=== PATIENT | male | born 1940 | race Caucasian/White ===

== ENCOUNTER 2017-01-26 12:00 | Inpatient (IN) | payer MEDICARE, OTHER ==
[~2017-01-26] VITALS: Ht 175.3 cm; Wt 64.9 kg
--- NOTE | ~2017-01-26 | CON ---
PATIENT'S NAME: ARSH WIN [facility] AGE: 76 Y [address] ROOM: [place] [address] [place] [facility] [place] DATE: 01/26/2017 Consultation DISCHARGE DATE: FAMILY PHYSICIAN: JUAN MORALES ATTENDING PHYSICIAN: MARGO DYE DATE OF CONSULTATION: 01/26/2017 REFERRING PHYSICIAN: Kavon Teran MD CHIEF COMPLAINT: Left hydronephrosis. HISTORY OF PRESENT ILLNESS: The patient is a pleasant 76-year-old male, who was transferred in today from [facility] for further evaluation and possible treatment. He had presented with new onset of abdominal pain along with some nausea. He underwent a CT scan of his abdomen and pelvis with findings including significant and severe left hydronephrosis with delayed contrast excretion on the left collecting system. He also had some mild dilatation of the left ureter with possibly a focal soft tissue density within the distal left ureter concerning for possible left ureteral mass. He was also noted to have a large cecal mass consistent with probable colon cancer. He also had multiple ill- defined liver lesions consistent with possible metastatic disease. He also had some right lower quadrant mesenteric lymphadenopathy. He did have only some mild right hydronephrosis. On CT scan, he was also noted to have a significantly enlarged prostate as well as some bladder wall thickening. The patient has reported some weakening of his urinary stream over the years as well as some urinary hesitancy. In addition, he has had some ongoing urinary urgency and frequency with nocturia 2 times per night. He denies any dysuria. He denies any prior procedures for his prostate. He has not been on any medications for his prostate. The patient has no further questions or concerns at this time. PAST MEDICAL HISTORY: 1. Hyperlipidemia. 2. Allergic rhinitis. 3. Colon mass. 4. Left hydronephrosis. PAST SURGICAL HISTORY: 1. Hernia repair. 2. Back surgery in 1970. 3. Sigmoidoscopy in November of 2016. SOCIAL HISTORY: PATIENT'S NAME: ARSH WIN [facility] AGE: 76 Y [address] ROOM: [place] [address] [place] [facility] [place] DATE: 01/26/2017 Consultation DISCHARGE DATE: FAMILY PHYSICIAN: KRILEY, JUAN C. ATTENDING PHYSICIAN: MARGO DYE The patient is . He is a former smoker with 16 years of smoking history. He denies any alcohol use or illicit drug use. He is a retired meza. FAMILY HISTORY: No reported family history of any genitourinary abnormalities. ALLERGIES: NO KNOWN DRUG ALLERGIES. MEDICATIONS: See hospitalization medication reconciliation. REVIEW OF SYSTEMS: A full 10+ point review of systems was performed with pertinent positive and negative findings included in the history of present illness. Of note, he did have some nausea but no vomiting. He denied any fevers, chills, or night sweats. He denies any chest pain or palpitations. He denied any dizziness or syncope. He denies any history of bleeding disorders. He denied any history of depression or anxiety. All other systems reviewed and are otherwise negative. PHYSICAL EXAMINATION: VITAL SIGNS: Stable. CONSTITUTIONAL: No acute distress. Hemodynamically stable. HEENT: Extraocular muscles intact. Mucous membranes moist. No drainage per ears and nose. CARDIAC: Good peripheral perfusion. No tachycardia. RESPIRATORY: No audible wheezing or stridor. ABDOMEN: Soft, nontender, nondistended. MUSCULOSKELETAL: Moves all extremities. NEUROLOGIC: No focal deficits noted. HEMATOLOGIC: No bruising or active sites of bleeding. PSYCHIATRIC: Normal affect and answers questions appropriately. IMPRESSION: 1. Left hydronephrosis with possible soft tissue density of distal ureter. 2. Benign prostatic hyperplasia. 3. Right-sided large cecal mass. 4. Right lower quadrant mesenteric lymphadenopathy. PLAN: I had a long discussion today with the patient regarding my findings. Given his findings on CT scan concerning for obstruction of his left renal collecting system, I did recommend further evaluation with cystoscopy and left PATIENT'S NAME: ARSH WIN [facility] AGE: 76 Y [address] ROOM: [place] [address] [place] [facility] DATE: 01/26/2017 Consultation DISCHARGE DATE: FAMILY PHYSICIAN: JUAN MORALES ATTENDING PHYSICIAN: MARGO DYE retrograde ureteropyelogram. I explained that we may also consider further evaluation with a diagnostic left ureteroscopy with possible biopsy if any mass is visualized. In addition, we discussed placement of concurrent indwelling left ureteral stent. We discussed the risks, benefits, indications, and alternatives. We also discussed placement of a temporary right ureteral catheter, which could aid General Surgery in identifying the right ureter if need be during their portion of the surgery which is going to include a likely colon resection. We will work together with General Surgery on this case, and we will start with cystoscopy first. We also discussed the possibility of having a difficult time finding his ureteral orifices given his severely enlarged prostate, in which case if we are unsuccessful in placing a stent on the left side, he may need further treatment with placement of a left- sided nephrostomy tube. His questions and concerns were addressed, and he has no further at this time. MD TIFFANY KAUR/sandy /[id number] d: 01/27/17 0032 t: 02/04/17 1029, CONSULTATION REPORT
--- NOTE | ~2017-01-26 | DS ---
PATIENT'S NAME: ARSH WIN [facility] AGE: 76 Y [address] ROOM: [address] [address] [place] [facility] [place] DATE: 01/26/2017 Discharge Summary DISCHARGE DATE: 02/01/2017 FAMILY PHYSICIAN: ATTENDING PHYSICIAN: Ivy Barrera DISCHARGE DIAGNOSES: 1. Cecal mass. 2. Severe hydronephrosis. 3. Acute kidney injury on chronic kidney disease, stage III. 4. Acute blood loss anemia. 5. Stage IV adenocarcinoma of the colon. PROCEDURES PERFORMED: 1. Cystoscopy with placement of indwelling bilateral ureter stents on 01/26/[address] Walter Mccarthy. 2. On 01/26/2017, laparoscopic right colectomy by Dr. Teran. 3. On 01/27/2017, Dr. Teran; diagnostic laparoscopy, evacuation of hematoma and placement of a clip on the ileocolic vessel. HOSPITAL COURSE: Please refer to admitting history and physical as dictated by Dr. Barrera. Briefly, the patient was admitted to [facility] with acute abdominal pain and evidence of a partial small bowel obstruction and mass. Dr. Teran was consulted for the cecal mass and recommended that he proceed with surgery. Dr. Teran performed a laparoscopic right colectomy on , at the same time, Dr. Mccarthy also saw the patient for severe left hydronephrosis and mild right hydronephrosis and performed a cystoscopy and placement of bilateral indwelling ureteral stents. Postoperatively, the patient was noted to have hypotension and anemia. His hemoglobin in recovery was found to be 6.9. Dr. Teran took him back to surgery where he performed diagnostic laparoscopy and evacuation of a hematoma with placement of a clip on the ileocolic vessel. He had approximately 1 L of blood loss in the abdomen. Postoperatively, the patient did require multiple units of packed red blood cells. His hemoglobin dropped as low as 6.5 on 01/30/2017. After further transfusions, hemoglobin remained steady at 9.2 to 9.4. He was asymptomatic. He was made n.p.o. postop. Ambulation was encouraged. His pain was monitored with the FEEDER SWITCHBOARD OPERATOR. Lovenox was held postoperatively because of his anemia. Mefoxin was continued postop. The patient's electrolytes were monitored. His creatinine did improve throughout his stay from 2.0 down to 1.1 on the day of discharge. He was able to be ambulatory in the halls. Physical therapy and occupational therapy were both consulted throughout his hospital stay. On 01/28/2017, his Burroughs and NG tube were discontinued. Dr. Cabello was consulted for the cecal tumor. Pathology was pending until the final day of hospitalization, at which time, pathology did reveal a stage IV adenocarcinoma of the colon. The patient was noted to have some urinary PATIENT'S NAME: ARSH WIN [facility] AGE: 76 Y [address] ROOM: [place] [address] [place] [facility] [place] DATE: 01/26/2017 Discharge Summary DISCHARGE DATE: 02/01/2017 FAMILY PHYSICIAN: ATTENDING PHYSICIAN: Ivy Barrera after his catheter was discontinued. He was started on Flomax. On the day of discharge, he was voiding without difficulties. The patient's bowel did begin to wake up. His bowel sounds were active. He did have a bowel movement on the day of discharge. His diet was increased to a surgical soft diet. The patient did have pending laboratory data that was ordered by Oncology that will need further followup. The patient had minimal abdominal pain. Not using anything for pain. He was up ambulatory in the hallway. On 02/01/2017, the patient's vital signs were stable. It was felt as though he could be discharged to home with further followup as an outpatient with Dr. Teran, [facility], Dr. Mccarthy and Dr. Edgardo Becerril. It was recommended that he follow up with Dr. Becerril in 3 days with the CBC and renal at that time. LABORATORY DATA: Sodium remained stable throughout his stay 144. Potassium 5.1 on admit and 3.7 on the day of discharge. Calcium 8.4. BUN 26 on admit and it did go as high as 33, prior to discharge 21. Creatinine 2.0 on admit, trended down to 1.1 on the day of discharge. Phos 2.9. ALT 14, AST 16, alkaline phosphatase 42. GFR 33 upon admit and greater than 60 prior to discharge. Mag 2.2. WBC 16.0 on admit, 3.3 prior to discharge. Hemoglobin 6.9, it trended upwards to 9.7 at which time then trended back downward as far as 6.5, prior to discharge it had been stable at 9.4. Hematocrit 19.9 to 29.2. Platelets 188. INR 1.22. CEA 18.7. Pathology reports adenocarcinoma grade 2, metastatic adenocarcinoma and 13 of 18 lymph nodes. DISCHARGE INSTRUCTIONS: Diet: As tolerated. Activity: No heavy lifting. Followup appointment with: 1. Dr. Teran in 1-2 weeks. 2. [facility] in 1-[address] Mccarthy in 3-[address] Edgardo Becerril in 3 days with the CBC and renal panel. Allow Steri-Strips on abdomen to fall off. DISCHARGE MEDICATIONS: 1. Protonix 40 mg p.o. daily. 2. Flomax 0.4 mg p.o. daily. 3. Fish oil 1 capsule p.o. daily. 4. Multivitamin 1 tablet p.o. daily. 5. Iron 65 mg p.o. daily. 6. Tylenol 650 mg p.o. every 6 hours p.r.n. pain. Thank you for allowing us to participate in the care of this patient as he has PATIENT'S NAME: ARSH WIN [facility] AGE: 76 Y [address] ROOM: [place] [address] [place] [facility] [place] DATE: 01/26/2017 Discharge Summary DISCHARGE DATE: 02/01/2017 FAMILY PHYSICIAN: ATTENDING PHYSICIAN: Ivy Barrera been hospitalized at [facility]. CELY HESS APRN FOR MD DAMASO PALOMO/sandy /[id number] CC: MD Kavon Donahue MD George K Bascom, MD THOMAS C KRILEY, MD d: 02/02/17 0450 t: 02/14/17 1603, DISCHARGE SUMMARY
--- NOTE | ~2017-01-26 | OR ---
PATIENT'S NAME: ARSH WIN [facility] AGE: 76 Y [address] ROOM: [place] [address] [place] [facility] [place] DATE: 01/26/2017 OR/Procedure Report DISCHARGE DATE: FAMILY PHYSICIAN: JUAN MORALES ATTENDING PHYSICIAN: MARGO DYE SURGEON: Mohit Mccarthy MD CRM MARKETING ANALYST: None. DATE OF PROCEDURE: 01/26/2017 PREOPERATIVE DIAGNOSES: 1. Severe left hydronephrosis. 2. Mild right hydronephrosis. 3. Small bowel obstruction. 4. Cecal mass with possible metastasis. 5. Benign prostatic hyperplasia. POSTOPERATIVE DIAGNOSES: 1. Severe left hydronephrosis. 2. Mild right hydronephrosis. 3. Small bowel obstruction. 4. Cecal mass with possible metastasis. 5. Benign prostatic hyperplasia. OPERATIVE PROCEDURES: 1. Cystoscopy with placement of indwelling bilateral ureteral stents. 2. Cystoscopy with left retrograde ureteral pyelogram. 3. Diagnostic left ureteroscopy. ANESTHESIA ADMINISTERED: General. INDICATIONS FOR PROCEDURE: The patient is a pleasant 76-year-old male, who had presented with nausea today and underwent a CT scan and was found to have findings consistent with a probable small bowel obstruction as well as cecal mass with likely metastasis possibly to the liver and right lower quadrant mesenteric lymphadenopathy. He was noted to have severe left hydronephrosis with hydroureter down to his distal left ureter as well as some mild right hydronephrosis. The patient was explained the risks, benefits, indications, and alternatives to above procedure and wished to proceed and consented freely. DESCRIPTION OF OPERATION: The patient was brought back to the operating room, where he was placed on the OR table in the supine position. A surgical time- out was called where patient identification, surgical site, and procedure was then verified. We also did verify that the patient received an IV antibiotic prior to beginning the procedure. The patient underwent successful PATIENT'S NAME: ARSH WIN [facility] AGE: 76 Y [address] ROOM: [place] [address] [place] [facility] [place] DATE: 01/26/2017 OR/Procedure Report DISCHARGE DATE: FAMILY PHYSICIAN: JUAN MORALES ATTENDING PHYSICIAN: MARGO DYE administration of general anesthesia. The patient was then moved and placed in a low lithotomy position. His genital area was then prepped and draped in the usual sterile fashion. I began by advancing a rigid cystoscope easily into the patient's urinary bladder. His anterior urethra was within normal limits. His posterior urethra was notable for severe trilobar hyperplasia of the prostate with a large intravesical median prostatic lobe. His bladder was negative for any bladder tumors, cellules, or diverticula. He did have evidence of long-term bladder outlet obstruction including 2 to 3+ bladder trabeculation. His ureteral orifices were noted to be in their orthotopic location but somewhat difficult to visualize given large median prostatic lobe. I then was able to cannulate his left ureteral orifice with a guidewire, then over the guide wire advanced a 5-Nigerien open-ended ureteral catheter and performed a left retrograde ureteral pyelogram. My interpretation is that he had significant hydronephrosis and hydroureter down to his distal ureter. There was a transition point at his distal left ureter approximately 3 cm proximal from his ureterovesical junction. There did not appear to be any internal filling defects. I then emptied his bladder and then re-entered with a semi-rigid ureteroscope and used a second guidewire to cannulate into his distal left ureter. I did come the across area of obstruction and was unable to past this area of obstruction. I did not see any papillary tumors and the obstruction was somewhat difficult to determine if this was a morbid extrinsic compression versus internal obstruction. I suspect that this is more of an external compression. Regardless, I withdrew the ureteroscope and then over the wire, advanced a 6-Nigerien x 26 cm ureteral stent deploying it noting a good curl fluoroscopically in the patient's left renal pelvis as well as a good curl visually in the patient's bladder. I then turned my attention to the right side. Given the fact that the general surgeons were going to need an indwelling catheter for their surgery, I opted to just go ahead and place a stent rather than leaving a ureteral catheter also given the fact that he had some mild hydronephrosis. I advanced a Sensor guidewire cannulating his right ureteral orifice and advanced the wire easily up to the patient's right renal collecting system. Then, over the wire, I advanced a 6-Nigerien x 26 cm ureteral stent deploying it noting a good curl fluoroscopically in the patient's right renal pelvis as well as a good curl visually in the patient's bladder. I did emptied the patient's bladder and then placed a 20-Nigerien coude Burroughs catheter easily into the patient's bladder. I placed 10 cubic centimeters of sterile water in the balloon and this was placed to gravity drainage. The patient was then taken out of the lithotomy position where he was then transferred over to the recovery bed and over to another operating room for Dr. Teran's portion of the procedure. Please see Dr. Teran's dictation for his procedure. The patient did tolerate my portion of the procedure well. COMPLICATIONS: None. PATIENT'S NAME: ARSH WIN [facility] AGE: 76 Y [address] ROOM: [address] [address] [place] [facility] [place] DATE: 01/26/2017 OR/Procedure Report DISCHARGE DATE: FAMILY PHYSICIAN: JUAN MORALES ATTENDING PHYSICIAN: MARGO DYE DRAINS: Indwelling bilateral 6-Nigerien x 26 cm indwelling ureteral stents. SPECIMENS: None. FOLLOWUP PLAN: His followup plan will be largely determined by his ultimate course with General Surgery but we will likely have him follow up as an outpatient in Urology Clinic to come up with a plan long-term regarding any further evaluation or treatment for his ureteral obstruction. MOHIT MCCARTHY MD GP/sandy /[id number] d: 01/27/17 0224 t: 02/04/17 1032, OPERATIVE SUMMARY
--- NOTE | ~2017-01-26 | CON ---
PATIENT'S NAME: ARSH WIN [facility] AGE: 76 Y [address] ROOM: [address] [address] [place] [facility] [place]: 01/26/2017 Consultation DISCHARGE DATE: FAMILY PHYSICIAN: JUAN MORALES ATTENDING PHYSICIAN: MARGO DYE DATE OF CONSULTATION: 01/26/2017 REFERRING PHYSICIAN: Kavon Teran MD CHIEF COMPLAINT: Abdominal pain and nausea. HISTORY OF PRESENT ILLNESS: The patient is a 76-year-old male, who awakened at 3 a.m. with abdominal pain. He described this very crampy, continued to be nauseated, was nauseated throughout the day, and ended up being seen in [place], where he was found to have significant abdominal tenderness. He had x-rays that were concerning for obstruction. He did have a CT scan of his abdomen, which revealed several significant findings including a large cecal mass, likely liver metastases, left hydronephrosis, and question of a left ureteral mass. With his abdominal pain, nausea, and signs of obstruction, he was sent here for further evaluation. Prior to this, the patient states that he has been eating well and had bowel movements yesterday; however, he has passed no gas today and had no bowel movements. He had an episode of abdominal pain approximately 1 month ago. This resolved very quickly. It was felt to be due to a small periumbilical hernia. The patient has been losing some weight. He has lost 10 pounds in the last 6 weeks. He says he feels like he has been eating. He says he has a history of having lower hemoglobin levels, has tried to give blood in the past and was unable to do this. He said he had a colonoscopy approximately 10 years ago, which he thought was normal. He had another one 1 month ago. They were unable to complete the colonoscopy at that time, but no other significant findings were present. He does have a significant family history of colon cancer. He had a mother, who had colon cancer. This was identified at the time of gallbladder removal when she was in her 60s. She did live to . He had a brother, who of colon cancer at age 57. He was a smoker in the past, smoked for approximately 15 years. CURRENT MEDICATIONS: No prescribed medications. ALLERGIES: NONE. PAST SURGICAL HISTORY: Inguinal hernia as well as a back surgery. PATIENT'S NAME: ARSH WIN [facility] AGE: 76 Y [address] ROOM: [address] [address] [place] [facility] [place]: 01/26/2017 Consultation DISCHARGE DATE: FAMILY PHYSICIAN: JUAN MORALES. ATTENDING PHYSICIAN: MARGO DYE SOCIAL HISTORY: He was a smoker in the past, roughly [id number] history. He does not drink a significant amount of alcohol. REVIEW OF SYSTEMS: He denies headache or vision changes. No diabetes. No coronary artery disease. No chest pain. No shortness of breath. No melena. No hematochezia. No hematuria or dysuria. He does have some urinary hesitancy. PHYSICAL EXAMINATION: GENERAL: A pleasant, cooperative, 76-year-old male. HEENT: Head is normocephalic, atraumatic. Eyes are anicteric. NECK: Without lymphadenopathy. HEART: Regular rate and rhythm. LUNGS: Clear to auscultation bilaterally. ABDOMEN: Soft. There is a mass palpable in the right lower quadrant. There is no rebound or guarding. There is distention. Hypoactive bowel sounds. He does have a small umbilical hernia. EXTREMITIES: Warm. No edema. NEUROLOGIC: Gross motor is intact. ASSESSMENT: 1. 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 2. Hydroureter. PLAN: At this point in time, discussed the findings with Arsh. This area being obstructing or at least near obstructing, we discussed observation and attempt chemotherapy versus surgery to relieve this obstruction. More immediately, I am concerned that his obstruction is going to continue to progress without surgical intervention. Because of this, we discussed risks of surgery, which include bleeding, infection, anastomotic leak, and wound complications. We discussed injury to other viscera as well as the ureter as well as even the potential need for an ostomy. He understands the risks of surgery and would like to proceed. Dr. Mccarthy has been consulted regarding his hydroureter. MD HAI LYON/sandy PATIENT'S NAME: ARSH WIN [facility] AGE: 76 Y [address] ROOM: [place] [address] [place] [facility] [place]: 01/26/2017 Consultation DISCHARGE DATE: FAMILY PHYSICIAN: JUAN MORALES ATTENDING PHYSICIAN: MARGO DYE /[id number] d: 01/27/176 t: 01/27/1718, CONSULTATION REPORT
--- NOTE | ~2017-01-26 | HP ---
PATIENT'S NAME: ARSH PIERSON [facility] AGE: 76 Y [address] ROOM: [address] [address] LOCATION: [facility] ADMIT DATE: 01/26/2017 History & Physical DISCHARGE DATE: FAMILY PHYSICIAN: JUAN MORALES ATTENDING PHYSICIAN: MARGO DYE DATE OF SERVICE: 01/26/2017 CHIEF COMPLAINT: Abrupt onset of abdominal pain less than 24 hours duration. HISTORY OF PRESENT ILLNESS: Mr. Pierson is a boyd 76-year-old male with a minimal past medical history. He reports being in his usual state of good health and in fact he donates blood every three months up until about 6 months ago. Routine screening at the [facility] showed positive occult blood and a colonoscopy was recommended. He had the colonoscopy done 30 days ago. The scope could not be advanced beyond the 9 degree angle in the colon, otherwise his colon looked good to that spot according to the club director. He denies any constitutional symptoms including constipation, significant fatigue, night sweats, excepting a 10 pound weight loss over 6 to 8 weeks, without any notable change in his appetite. He also denies fatigue, urinary symptoms, melena, or hematochezia. He suddenly developed abdominal pain at about 3:00 am today associated with dry heaves. He had some minor rigors. He had a bowel movement, which is small, loose around 4, but little bit looser at 7:00 am. He has had no further bowel movement since then. He has had no actual vomiting with dry heaves and he has had nothing to eat since 6:00 pm yesterday. He was seen and evaluated at [facility] in [place], where CT scan was obtained showing a large cecal mass, multiple liver lesions, and a cyst in the pancreatic head. He appeared to have early small-bowel obstruction. In addition, he was noted to have severe left hydronephrosis and enlarged prostate. In the emergency room, the patient's vital signs were stable with blood pressure 165/89, pulse 77, respirations 20, room air oxygen saturation 96%, and temperature 97.6. Thus he was allowed to drive here in his personal vehicle with his from [facility] this afternoon. He has been seen by Dr. Colleen Jiménez and Dr. Mccarthy, they both explained the rationale for surgical procedures and plans to take him to the operating room this evening. The patient and his appeared to understand these plans and were given time to answer the questions and encouraged to call me back in case they come up with further questions or concerns this evening. PAST MEDICAL HISTORY: PATIENT'S NAME: ARSH PIERSON [facility] AGE: 76 Y [address] ROOM: [place] [address] LOCATION: [facility] ADMIT DATE: 01/26/2017 History & Physical DISCHARGE DATE: FAMILY PHYSICIAN: JUAN MORALES ATTENDING PHYSICIAN: MARGO DYE. The patient said he has been taking iron supplement daily because his iron was borderline due to his donation of blood. Other than that, he denies hypertension, diabetes, or other chronic illnesses. PAST SURGICAL HISTORY: He had spinal fusion in 1970 at L4 and L5. He had an inguinal hernia repair on the right approximately 20 years ago. ALLERGIES: NO KNOWN DRUG ALLERGIES. MEDICATIONS: 1. 160 mg of iron p.o. daily. 2. Red yeast rice 600 mg two capsules daily. 3. Fish oil one capsule daily. 4. Flaxseed powder. 5. Multiple vitamin one daily. 6. Cayenne two capsules once a day. IMMUNIZATIONS: He has been immunized against pneumococcal, pneumonia, and influenza. He has not had shingles vaccine. SOCIAL HISTORY: He has been for more than 51 years. He has eight children one of whom lives in [facility]. He lives with his in [place], [place]. 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 He is a former smoker. He smoked for about 15-18 years one pack per day and he quit 40 years ago. He continues to drink about 1-2 glasses of beer or wine daily. He denies other substance use. FAMILY HISTORY: His mother at age 99. His father at age 96. He is one of 12 siblings. He had two siblings in childhood of cystic fibrosis and one brother who of colon cancer at age 58. The patient says he has had regular colon screening since his brother was diagnosed with colon cancer. REVIEW OF SYSTEMS: GENERAL: He has had the 10 pound weight loss over the past 6-8 weeks with normal appetite. No significant fatigue. No fevers. HEENT: Negative for headache, blurred vision, or dizziness. He does have small cataracts. He wears glasses. His vision is stable. He denies sinus problems. 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 PULMONARY: Negative for dyspnea, wheeze, cough, sputum production, and orthopnea. PATIENT'S NAME: ARSH PIERSON [facility] AGE: 76 Y [address] ROOM: [address] [address] LOCATION: [facility] ADMIT DATE: 01/26/2017 History & Physical DISCHARGE DATE: FAMILY PHYSICIAN: JUAN MORALES. ATTENDING PHYSICIAN: MARGO DYE CARDIOVASCULAR: Negative for any cardiovascular disease, palpitations, murmurs, or edema. GI: Positive for nausea and dry heaves with onset suddenly today. He had no vomiting or diarrhea. He may have had slight constipation related to his iron intake. He has had some bloating with a constant ache since 2 to 3 this morning. He denies hematemesis, hematochezia, or melena. KIDNEY AND BLADDER: He does have difficulty starting his slowest stream, which is poor but he denies UTI, burning on urination, hematuria, or polyuria. He is not taking any Flomax or medications for urinary symptoms. NEUROLOGIC: Negative including for weakness, numbness, confusion, dysarthria, syncope or near syncope, falls, loss of balance, or memory loss. HEMATOLOGIC: He has a borderline hemoglobin, but no significant history of anemia, bruising, or clotting disorders. 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 SKIN: He has had no skin cancers, allergies, pruritus, or significant rashes. PSYCHIATRIC: He denies any history of depression, anxiety, schizophrenia, manic disorder, or insomnia. Remainder of a 12-point review of systems is negative and has been reviewed by. The patient and his do not offer any other complaints. PHYSICAL EXAMINATION: VITAL SIGNS: Temperature 98, respirations 16, pulse 84, blood pressure 162/90, and his weight is 63.2 kilos. GENERAL: This is a well-developed, well-nourished, but small male, in no acute distress. He is awake, alert, oriented, and speaking in full sentences, and unable to give his history in detail. HEENT: Normocephalic, atraumatic. He is wearing glasses. Pupils are equal, round, and reactive to light. Sclerae anicteric. Palpebral conjunctivae are pink without exudate. The dentition is in very good repair. He has L1 partial plate. The soft palate lifts symmetrically. He does wear hearing aid in the left ear. NECK: Supple without lymphadenopathy or thyromegaly. PULMONARY: Clear to auscultation and percussion bilaterally. He has no CVA or vertebral tenderness. He has a well-healed scar in the lumbar spine. CARDIOVASCULAR: Regular rate and rhythm. No murmur, rub, or gallop. ABDOMEN: Slightly full, but soft with hyperactive bowel sounds. Fullness in the right lower quadrant. Dullness in the left lower quadrant. I do not feel a really specific mass though. There is no hepatosplenomegaly. EXTREMITIES: No cyanosis, clubbing, or edema. Strength is 5/5 and equal bilaterally in upper and lower extremities. He is able to grasp and move in the dorsiflexion and plantar flexion. His radial and pedal pulses are 2+ and equal bilaterally. SKIN: Thin and no significant lesion. He has a very small mole under the right eye. PATIENT'S NAME: ARSH PIERSON [facility] AGE: 76 Y [address] ROOM: [place] [address] LOCATION: [facility] ADMIT DATE: 01/26/2017 History & Physical DISCHARGE DATE: FAMILY PHYSICIAN: JUAN MORALES ATTENDING PHYSICIAN: MARGO DYE DIAGNOSTIC DATA: LABORATORY DATA: White blood cell count 6.6, hemoglobin 13.1, hematocrit 38.1, and platelets 246,000. Neutrophils 86%, lymphocytes 9.2% monocytes 4%. Sodium 139, potassium 4.4, chloride 99, CO2 20, glucose 111, BUN 33, and creatinine 1.62. Calcium 8.9, albumin 3.8, total protein 7.4, AST 17, ALT 13, alkaline phosphatase 76, and bilirubin 0.4. EGFR is 42. RADIOGRAPHIC: CT of the abdomen and pelvis at least 6 ill-defined low attenuation of a lesions. Severe left hydronephrosis with delayed contrast excretion. The left renal pelvis is dilated up to 2.7 cm. Mild dilation of left ureter. 1. Diffuse atherosclerosis. 2. Multiple dilated loops of small bowel air filled fluid levels. 3. Large mass within the cecum measuring 5 x 5 x 6 cm. 4. Right lower quadrant mesenteric lymphadenopathy concerning for matt metastasis. 5. Small abdominal and pelvic ascites. 6. Mild mesenteric edema. 7. No free air or pneumatosis. ASSESSMENT AND PLAN: 1. Acute abdominal pain with new findings and mild symptoms associated with radiographic evidence of partial small bowel obstruction and masses likely colon cancer. The patient will go to surgery at 7:00 pm, both Dr. Mccarthy and Dr. Colleen Jiménez will do procedures related to their specialty to address hydronephrosis and cecal mass. The patient is stable at this time. 2. Elevated creatinine. It looks like he may have some acute kidney injury on possible chronic kidney disease, which has been heretofore undiagnosed. We will monitor his renal function and any appropriate follow up. 3. Mild iron deficiency: The patient does have a normal hemoglobin at this time. He has a normal MCV, this is not concerning. 4. Disposition: The patient will be treated postoperatively and hopefully discharge to home within next week. Dr. Colleen Jiménez has given him a trajectory which he could expect given that this surgery is for indication involving a tumor. Thanks very much for your assistance. MARGO DYE MD LM/sandy PATIENT'S NAME: ARSH PIERSON [facility] AGE: 76 Y [address] ROOM: [address] [address] LOCATION: [facility] ADMIT DATE: 01/26/2017 History & Physical DISCHARGE DATE: FAMILY PHYSICIAN: JUAN MORALES ATTENDING PHYSICIAN: MARGO DYE /[id number] D: T: [id number] HISTORY & PHYSICAL
--- NOTE | ~2017-01-26 | OR ---
PATIENT'S NAME: ARSH [facility] AGE: 76 Y [address] ROOM: [address] [address] [place] [facility] [place] ADMIT DATE: 01/26/2017 OR/Procedure Report DISCHARGE DATE: FAMILY PHYSICIAN: JUAN MORALES ATTENDING PHYSICIAN: MARGO DYE SURGEON: Kavon Soria MD GAG WRITER: Gaye Caro PA-C. DATE OF PROCEDURE: 01/26/2017 PREOPERATIVE DIAGNOSIS: Obstructing cecal mass. POSTOPERATIVE DIAGNOSIS: Obstructing cecal mass. PROCEDURE: Laparoscopic right colectomy. FINDINGS: The patient had a very large cecal tumor. The small bowel was dilated consistent with obstruction. The liver lesions seen by CT were not visible on the external surface of the liver. There was a peritoneal nodule near the umbilicus that was excised and sent for pathologic evaluation. Tumor was visible on the external surface of the bowel wall. There were also peritoneal implants in the pelvis and on the small bowel. ESTIMATED BLOOD LOSS: 50 mL. COMPLICATIONS: None. INDICATIONS: The patient presented with abdominal pain. He had CT scan that revealed evidence of bowel obstruction with a cecal mass. We discussed right colectomy to relieve the obstruction with the patient; the risks, benefits, and alternatives of this; and he elected to proceed. DESCRIPTION OF PROCEDURE: The patient was taken to the operating room. He was supine. He was given IV sedation and subsequently intubated. Abdomen was prepped with ChloraPrep and sterilely draped. Local anesthetic was then infiltrated superior to the umbilicus. A vertical incision was created. The abdomen was elevated. A Veress needle was inserted. Pneumoperitoneum was induced. Following this, an 11 mm trocar was inserted followed by insertion of the camera. There was no injury from initial trocar placement. The cecal mass was immediately evident. It appeared as though this extended into the lateral sidewall initially. There appeared to be tumor visible on the bowel wall as well. The liver was inspected. There were no metastatic deposits externally on the liver. We placed 2 more trocars, these were both 5 mm trocars inserted in the left abdomen under direct visualization. Graspers were then inserted. We elevated the mesentery. This was quite distorted due to the cecal mass making this more difficult. A window was then created towards the base of the mesentery. His mesentery was quite thin in areas. PATIENT'S NAME: ARSH [facility] AGE: 76 Y [address] ROOM: [address] [address] [place]: [facility] [place] ADMIT DATE: 01/26/2017 OR/Procedure Report DISCHARGE DATE: FAMILY PHYSICIAN: JUAN MORALES. ATTENDING PHYSICIAN: MARGO YDE The duodenum was very dilated due to its obstruction. We were able to create a window, identify the duodenum, as well as the ureter and carefully began our dissection. The mesentery was divided with the EnSeal device. We continued in a medial to lateral fashion and dissected up to the mid transverse colon as well as to the terminal ileum. We then turned our attention laterally where we initially thought there was tumor extending to the pelvic sidewall. We began dissecting this out. It was very hard and firm. Ultimately, the cecum was adherent to a mesh plug, but a small plane was able to be created and after this plane was created, it did not appear as though the tumor extended through the peritoneum on this border. The rest of the peritoneal attachments were then divided. The omentum was taken off the transverse colon, up to our planned resection site. Once this was completed, the right colon and terminal ileum were all mobile. Our vertical midline incision was then increased in size. An Danish wound protector was placed. The terminal ileum and colon were delivered through the incision. This was a very large tumor. Our proximal and distal resection sites have been selected. There were divided with a stapler. The specimen was passed off the table. An enterotomy and colotomy were then created. A KEYANA stapler was inserted into each opening. The stapler was fired creating a common lumen. The enterotomy and colotomy were then closed with a single firing of the KEYANA stapler. The anastomosis was palpated, it was patent. Hemostasis was checked, had been obtained. The bowel was allowed to fall back from the cavity. We further inspected an area that was previously thought to be an umbilical hernia. However, this was a firm, nodular area concerning for peritoneal implant. This was excised and sent for pathologic evaluation. This could represent a Sister [facility] node or even changes from previous incarcerated fat on this umbilical hernia. Once this was excised, the midline fascia was reapproximated with 0 PDS suture. The camera was reinserted through the 5 mm trocar site. The abdominal cavity appeared hemostatic. There was still some ascites that we attempted to suction from the abdominal cavity. The pneumoperitoneum was then released. The trocars were removed. All the skin edges were approximated with 4-0 Monocryl suture. Steri-Strips and sterile dressings were placed. The patient was extubated and sent to recovery. No external masses were visible on the liver but there were peritoneal implants in the pelvis and in one area of the small bowel. KAVON J MD HAI SORIA/modl /[id number] d: 01/27/17 0442 t: 01/27/17 0625, OPERATIVE SUMMARY
--- NOTE | ~2017-01-26 | CON ---
PATIENT'S NAME: ARSH PIERSNO [facility] AGE: 76 Y [address] 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 The history of the present illness is obtained from Mr. Pierson, who is a good historian; Ms. Pierson, who is helpful; from review of the records forwarded by our colleagues in [place], [place]; and review of the [facility] record. Mr. Pierson was in his normal state of health until 12/19/2016. He lived in [place], [place] with his . He worked 27 hours a week at his [employer]. He had no formal or informal exercise or rehabilitation program. He had no practical limits. He had normal bowel movements twice a day. He does acknowledge he experienced nocturia twice a night and some incomplete voiding. In light of his subsequent history, it is interesting that the patient was unable to donate blood two years ago because his hemoglobin was "not high enough." However, the patient believes he was told his hemoglobin was in the low normal range. The patient prescribed iron to himself. In September 2016, the patient underwent his annual physical at the [facility] in [place], [place]. Hemoccult testing was positive. The patient has undergone annual Hemoccult testing over the years, and this was the first time it was positive. The patient reports he had a colonoscopy ten or perhaps longer years ago. He had no history of polyposis in the past. A colonoscopy was scheduled. On 12/19/2016, the patient developed "terrible" jansen abdominal pain. The patient saw his physician, Dr. Edgardo Becerril, who detected and reduced an umbilical hernia. The patient reports his pain was rapidly relieved by this maneuver. On 12/23/2016, the patient underwent the previously scheduled colonoscopy in [place] by Dr. Becerril. Dr. Becerril was unable to advance the colonoscope through the entire colon, but the "lower portion" of the colon was unremarkable. Following the colonoscopy, the patient's bowel habits never returned to normal. He had bowel movements twice a day or even three times a day. He did not have diarrhea, but his stools were looser. He developed "gas PATIENT'S NAME: ARSH PIERSON [facility] AGE: 76 Y [address] ROOM: [place] [address] LOCATION: [facility] ADMIT DATE: 01/26/2017 Consultation DISCHARGE DATE: FAMILY PHYSICIAN: EDGARDO BECERRIL. ATTENDING PHYSICIAN: MARGO BARRERA" and fecal urgency, though no incontinence. On 01/26/2017, the patient developed intense periumbilical aching, which would slightly wax and wane. He then developed troublesome dry heaves and hiccups. The patient reported to the hospital in [place], [place]. A urinalysis was unremarkable. The complete blood count revealed a white blood cell count of 6600, the hemoglobin was 13.1 g/dL, the MCV was 88, and platelets were 246,000. The patient had 86% neutrophils and 9% lymphocytes. The general chemical profile was unremarkable. A CAT scan of the abdomen and pelvis revealed a 6-cm mass in the cecal portion of the colon. There was mesenteric lymphadenopathy in the right lower quadrant of the abdomen with a small amount of abdominal and pelvic ascites and mild mesenteric edema. There were multiple dilated loops of small bowel and air-fluid levels. The small bowel was dilated up to 3.3 cm, to the level of the terminal ileum, where there was a bowel obstruction secondary to the mass. There were multiple low-attenuation liver lesions, with the largest measuring 2.5 cm. There was an indeterminate low-attenuation mass or cyst within the pancreatic head. There was severe left hydronephrosis with delayed contrast excretion. The left renal pelvis was dilated to 2.7 cm. There was a focal soft tissue density within the left ureter at the pelvic inlet. There was mild right hydronephrosis. The prostate was enlarged with a mass effect on the urinary bladder. There was mild diffuse urinary bladder wall thickening. There was diffuse atherosclerosis of the abdominal vessels. There was osteoarthritis in the lumbar spine and posterior element fusion at L5-S1. The patient was transferred to [facility]. A preoperative CEA was 18.7 ng/mL, with the upper limits of normal being 3.7 ng/mL. Dr. Barrera coordinated his care, and consulted Dr. Kavon Teran and Dr. Walter Mccarthy. On 01/26/2017, Dr. Mccarthy performed a cystoscopy with placement of indwelling bilateral ureteral stents. He performed a left retrograde ureteropyelogram and a diagnostic left ureteroscopy. Dr. Mccarthy noted the presence of severe trilobar hyperplasia of the prostate with a large intravesical median prostatic lobe. There was evidence of long-term bladder outlet obstruction. Following the urologic procedure, Dr. Teran performed a laparoscopic right colectomy. The small bowel was dilated due to obstruction. The liver lesions seen on CAT scan were not visible on the external surface of the lesion of the liver. There was a peritoneal nodule near the umbilicus that was excised and sent for pathologic evaluation. Tumor was visible on the external surface of the bowel wall. There were peritoneal implants in the pelvis and the small bowel. The patient is currently on his third postoperative day, and doing reasonably well. The anatomical pathology report is pending. PATIENT'S NAME: ARSH PIERSON [facility] AGE: 76 Y [address] ROOM: [address] [address] LOCATION: [facility] ADMIT DATE: 01/26/2017 Consultation DISCHARGE DATE: FAMILY PHYSICIAN: EDGARDO BECERRIL. ATTENDING PHYSICIAN: MARGO BARRERA The patient's mother developed colon cancer in her early 60s, and was cured surgically. His brother developed colon cancer at age 58, and from the disease. The patient has nine siblings. Another brother developed lymphoma and was cured. The patient smoked one pack per day of cigarettes for fifteen years, but has abstained since 1973. The patient has no personal history of polyps or inflammatory bowel disease. ACTIVE MEDICAL PROBLEMS, CHRONIC AND DIAGNOSED: 1. Hyperlipidemia noted in 2001. 2. Benign prostatic hypertrophy, documented on cystoscopy leading to hydronephrosis. 3. 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 4. Early cataracts. 5. Subjective decreased auditory acuity. The patient brought an over-the- counter hearing aids, which does help. 6. Tobacco use, one pack per day for fifteen years, abstained since 1973. ACUTE MEDICAL ILLNESSES (RESOLVED) PAST SURGERIES AND INJURIES: 1. In 1970, L5-S1 fusion. 2. In 1996, right inguinal herniorrhaphy. MEDICATIONS UPON ADMISSION: 1. Ibuprofen 200 mg p.o. daily p.r.n. 2. 65 mg of aspirin daily. 3. MVI 1 p.o. daily. 4. Naproxen 220 mg p.o. daily. 5. Stanton-3 fish oil one capsule p.o. daily. 6. Red yeast rice 600 mg daily. ADVERSE REACTIONS TO MEDICATIONS, TRANSFUSIONS, AND ALLERGIES: The patient received 2 units of packed red blood cells following surgery here. TOBACCO: One pack per day for fifteen years, abstained since 1973. ALCOHOL: Two beers a day over the years. CAFFEINE: 1. Two cups per day of coffee. PATIENT'S NAME: ARSH PIERSON [facility] AGE: 76 Y [address] ROOM: [place] [address] LOCATION: [facility] ADMIT DATE: 01/26/2017 Consultation DISCHARGE DATE: FAMILY PHYSICIAN: EDGARDO BECERRIL. ATTENDING PHYSICIAN: MARGO BARRERA 2. Rare soft drink. IMMUNIZATIONS: Positive flu. Positive Pneumovax. Positive tetanus. Negative varicella zoster virus. FAMILY HISTORY: Noted for mother and brother had colon cancer. SOCIAL HISTORY: The patient was born in [place], [place]. He graduated from the [employer] [place] [employer]. He went to [employer] in [place], [place]. The patient served our country in the [employer] from 1961 to 1963. He spent 14 months in [place] in the [employer]. 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 The patient has two sons and a daughter in [place], [place]; a son in [facility]; a son in [place], [place]; a daughter in [place], [place]; a daughter in [place], [place]; and a daughter in [place], [place]. The patient and his are Catholics. His is a retired nurse. REVIEW OF SYMPTOMS: The patient lost ten pounds over the 6 to 8 weeks prior to his hospitalization. PHYSICAL EXAMINATION: VITAL SIGNS: Pulse was 80 and regular, blood pressure was 125/65, respiratory rate was 20, and temperature was 98.5. Height is 69 inches and weight is 63.2 kg (139 pounds) and BMI is 20.5 kg/m2. GENERAL: Well-developed, wiry, 76-year-old, male, in no acute distress. HEENT: Unremarkable. Lymph nodes were nonpalpable. NECK: Without JVD or carotid bruits. SKIN: Scattered moles and nevi. CHEST: Clear. CARDIOVASCULAR: Regular rate and rhythm. No murmurs, bruits, or adventitious sounds. ABDOMEN: No masses. Tenderness to slight palpation. Bowel sounds are present. GENITALIA AND RECTAL: Not examined. There is a large hematoma in his left inguinal area and left lower quadrant of the abdomen. EXTREMITIES: Without peripheral edema. Pulses are 2+ throughout. NEUROLOGICAL: Cranial nerves II through XII are intact. Strength was 5/5 throughout. Deep tendon reflexes were not assessed. The patient is alert and oriented. PATIENT'S NAME: ARSH PIERSON [facility] AGE: 76 Y [address] ROOM: [place] [address] LOCATION: [facility] ADMIT DATE: 01/26/2017 Consultation DISCHARGE DATE: FAMILY PHYSICIAN: EDGARDO BECERRIL ATTENDING PHYSICIAN: MARGO BARRERA IMPRESSION: 1. 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 There was also mild abdominal and pelvic ascites. 2. The patient's risk factors would include his family history and his use of tobacco in the past. 3. Presumed benign prostatic hypertrophy, rather severe. 4. The tissue is still outstanding. RECOMMENDATIONS: DIAGNOSTIC 1. Await the pathology report. 2. Consider chest imaging either with a plain film of the lungs or a CAT scan of the chest. TREATMENT 1. No antineoplastic therapy at this point. Recommendations depend on the tissue. 2. Continue current medications. PATIENT EDUCATION Acknowledged we think it is likely he has primary colon cancer metastatic to the liver, but we need tissue confirmation before having more extensive discussions about prognosis and treatment choices. MD MICHELL SANTANA/dorotheal /[id number] CC: MD Kavon MOHAN MD Garrett Pohlman, MD Lucinda Mundorf, MD d: 01/30/17 0037 t: 01/31/17 1002, CONSULTATION REPORT
--- NOTE | ~2017-01-26 | OR ---
PATIENT'S NAME: ARSH WIN [facility] AGE: 76 Y [address] ROOM: [address] [address] LOCATION: [facility] ADMIT DATE: 01/26/2017 OR/Procedure Report DISCHARGE DATE: FAMILY PHYSICIAN: JUAN MORALES ATTENDING PHYSICIAN: MARGO DYE SURGEON: Kavon Soria MD DRUMS TEACHER: DATE OF PROCEDURE: 01/27/2017 PREOPERATIVE DIAGNOSES: Hypotension and anemia following colectomy with likely postoperative bleed. POSTOPERATIVE DIAGNOSES: Hypotension and anemia following colectomy with likely postoperative bleed. PROCEDURE PERFORMED: Diagnostic laparoscopy, evacuation of hematoma, placement of a clip on the ileocolic vessel. ESTIMATED BLOOD LOSS: Approximately 1 L in the abdomen. COMPLICATIONS: None. INDICATIONS: The patient is a 76-year-old male, who had a recent colectomy. He had developed hypotension in recovery. He was found to be anemic with this. We discussed with family a repeat exploration. The risks, benefits, and alternatives of this potential findings, inability to find the bleeding source and they wished to proceed. DESCRIPTION OF PROCEDURE: The patient was taken into the operating room. He was supine. Given IV sedation and subsequently intubated. His abdomen was prepped with ChloraPrep and sterilely draped. One of his laparoscopic ports was reopened using an optical viewing trocar. A 5 mm trocar was inserted. There was blood in the abdominal cavity. However, we were able to get adequate visualization. Two more 5 mm trocars were inserted, 1 in the left lower quadrant and 1 in the right upper quadrant. The hematoma was evacuated. This was moderate to large amount of blood after completion of the evacuation estimated approximately 1 L. We had a difficult time identifying the bleeding source. We initially examined the ileocolic stump. It did not appear to be bleeding in this area. However, with repositioning the patient, there was seen to be oozing from this generalized area. This was suctioned and after exploration was there only identifiable source. The clip was placed across this to control any future bleeding. We irrigated the abdominal cavity. No further bleeding was identified. Pneumoperitoneum was then released. The trocars were removed. The trocar sites appeared hemostatic. The skin edges of all the trocar sites were closed with 4-0 Monocryl suture. Steri-Strips PATIENT'S NAME: ARSH WIN [facility] AGE: 76 Y [address] ROOM: [place] [address] LOCATION: [facility] ADMIT DATE: 01/26/2017 OR/Procedure Report DISCHARGE DATE: FAMILY PHYSICIAN: JUAN MORALES ATTENDING PHYSICIAN: MARGO DYE and sterile dressings were placed. He was extubated and sent to recovery. KAVON J MD AHI SORIA/sandy /[id number] d: 01/27/17 0847 t: 02/09/17 1730, OPERATIVE SUMMARY
--- NOTE | 2017-01-26 15:59 | NUR ---
Pt is 76 y/o male admit for abdominal pain,L)hydronephrosis and cecum mass for hospitalist. No allergies. Pt reports he's had a 10 pound weight loss over the past 8 weeks. Resides at home with his . Came via private car from [place], [place]. Hx DVT left leg,colonoscopy in November,positive hemacult,OA bilat,diff with stream. At 0300 this am pt woke up with abd pain. Denies flatus.
[2017-01-26] MEDS ORDERED: THERAGRAN-M1 TAB PO (16:15)
[2017-01-26] MEDS ORDERED: FISH OIL 1,001000 MG PO (16:15)
[2017-01-26] MEDS ORDERED: RED YEAST RICE600 MG PO (16:15)
[2017-01-26] MEDS ORDERED: ALEVE220 M1 PO (16:16)
[2017-01-26] MEDS ORDERED: IRON65 PO (16:16)
[2017-01-26] MEDS ORDERED: ADVIL200 MG PO (16:17)
--- NOTE | 2017-01-26 19:25 | NUR ---
Significant Event:PT ADMITTED FOR UPPER ABDOMINAL PAIN. WITH LEFT HYDRONEPHROSIS AND LIVER LESION. REMAINS NPO SINCE YESTERDAY. HAD HICCUPS SEVERAL TIMES THIS AFTERNOON. C/O ABDOMINAL PAIN AT 11/07 BUT REFUSES PAIN MEDS. IV RFA. NKA. UP AD WILLIAM IN ROOM. TO SURGERY AT 183. Follow up:
[2017-01-27 00:50] LABS: HEMATOCRIT 21.3 % (37.0-53.0)
[2017-01-27 00:51] LABS: HEMOGLOBIN 6.9 g/dL (11.0-16.0)
[2017-01-27 01:28] LABS: HEMOGLOBIN 6.9 g/dL (11.0-16.0)
[2017-01-27 01:37] LABS: INR - (THERAPEUTIC) 1.22 (0.92-1.07); PROTIME 12.8 SECONDS (9.8-11.4)
[2017-01-27 04:14] LABS: BASOPHIL % 0.1 %; HEMOGLOBIN 9.7 g/dL (11.0-16.0); IMMATURE GRANULOCYTE % 0.2 %; LYMPHOCYTE # 0.6 K/uL (0.8-4.0); LYMPHOCYTE % 3.4 %; MCH 31.4 pg (27.0-34.0); MCHC 33.2 gm/dL (32.0-36.5); MCV 94.5 fl (83.0-98.0); MONOCYTE # 1.3 K/uL (0.0-1.0); MONOCYTE % 8.2 %; MPV 10.1 fl (9.4-12.4); NEUTROPHIL # (ANC) 14.1 K/uL (1.4-9.0); NEUTROPHIL % 88.1 %; NRBC % 0 /100WBC (0-0.00); PLATELET COUNT 147 K/uL (150-450); RBC 3.09 M/uL (3.50-5.50); RDW-CV 13.8 % (11.9-14.6)
[2017-01-27 04:16] LABS: HEMATOCRIT 29.2 % (37.0-53.0)
[2017-01-27 04:31] LABS: ALBUMIN 2.4 gm/dL (3.5-5.0); MAGNESIUM 1.8 mg/dL (1.8-2.6); POTASSIUM 5.1 mMol/L (3.7-5.1); TOTAL BILIRUBIN 1.4 mg/dL (0.0-1.5)
[2017-01-27 04:33] LABS: ANION GAP 12.1 (10.0-19.0); CALCIUM 6.5 mg/dL (8.5-10.5); TOTAL PROTEIN 4.8 g/dL (6.0-8.4)
--- NOTE | 2017-01-27 07:35 | NUR ---
Significant Event: PT ARRIVED TO UNIT POST-OP LAP R) COLECTOMY AND CYSTOSCOPY WITH BILAT STENT PLACEMENT. PT ON DRUG ABUSE WORKER PUMP WITH LR RUNNING AT 125/HR. ON 2L/NC. AT BEDSIDE. VSS AT THIS TIME. CRESPO CATHETER IN PLACE AND PATENT. NG TO R) NARE IN PLACE AND SET TO LOW CONTINUOUS SUCTION. NPO STATUS. Follow up:
[2017-01-27 11:08] LABS: HEMATOCRIT 24.7 % (37.0-53.0); HEMOGLOBIN 8.5 g/dL (11.0-16.0)
--- NOTE | 2017-01-27 16:23 | NUR ---
SPOKE TO PATIENT AND HIS SPOUSE BETTY MARTINESAamir THEIR DAUGHTERS AT THE BEDSIDE. INTRODUCED CM AND OUR ROLE. PATIENT LIVES IN OWN HOME WITH SPOUSE AND IS PLANNING ON RETURNING THERE ONCE HE IS READY FOR DISCHARGE. PATIENT DOES NOT ANTICIPATE ANY DISCHARGE NEEDS AT THIS TIME. WILL CONT TO FOLLOW NEEDED.
--- NOTE | 2017-01-27 18:30 | NUR ---
Significant Event: Patient up this afternoon and ambulated twice--3 laps each time and tolerated well. Didn't want to sit up in chair but did move and reposition quite a bit in bed. Also had leg pumps on as ordered. Burroughs to dependent drainage-750 ml output , NG to low continuous suction-150 ml output. Lap sites times 3 to abdomen and midline incision times one all with gauze/tegaderm dressings on them. Patient has ice chips and lemon drops at bedside. Pain has ranged from 2-5 depending on activity that patient is doing. and daughters at bedside. Patient using I.S. and doing well with it--currently on 1 liter of oxygen. Follow up: Continue to monitor.
[2017-01-27 20:02] LABS: HEMATOCRIT 22.1 % (37.0-53.0); HEMOGLOBIN 7.6 g/dL (11.0-16.0)
--- NOTE | 2017-01-28 02:04 | NUR ---
SIGNIFICANT EVENT: Patient alert & oriented. VSS on 1L. Post op lap colectomy and bilateral ureteral stent placement. Burroughs patent, draining dark yellow urine/occasionally some blood. Q4h outputs, less than 100 mL in 4h call MD. PM Hgb down to 7.6, MD notified. No new orders. PIV to R) FA infusing LR at 75 mL/hr with intermittent IV acetaminophen and antibiotics. Hydromorphone SUPERVISOR AUDIT CLERKS, 0.1 mg bolus only with 10 minute lockout. Ambulate in gallegos x1 this shift. Pleasant and cooperative with cares.
[2017-01-28 05:01] LABS: BASOPHIL % 0.1 %; EOSINOPHIL % 0.1 %; HEMATOCRIT 20.3 % (37.0-53.0); IMMATURE GRANULOCYTE % 0.3 %; LYMPHOCYTE # 0.8 K/uL (0.8-4.0); LYMPHOCYTE % 10.9 %; MCHC 33.5 gm/dL (32.0-36.5); MCV 92.3 fl (83.0-98.0); MONOCYTE # 0.7 K/uL (0.0-1.0); MPV 10.4 fl (9.4-12.4); NEUTROPHIL # (ANC) 5.4 K/uL (1.4-9.0); NEUTROPHIL % 78.6 %; NRBC % 0 /100WBC (0-0.00); PLATELET COUNT 151 K/uL (150-450); RDW-CV 14.9 % (11.9-14.6); WBC 6.9 K/uL (4.0-11.0)
[2017-01-28 05:02] LABS: HEMOGLOBIN 6.8 g/dL (11.0-16.0); MCH 30.9 pg (27.0-34.0)
[2017-01-28 05:15] LABS: ALBUMIN 2.4 gm/dL (3.5-5.0); ANION GAP 10.4 (10.0-19.0); CREATININE 1.9 mg/dL (0.6-1.3); PHOSPHORUS 2.9 mg/dL (2.5-4.9); POTASSIUM 4.4 mMol/L (3.7-5.1)
[2017-01-28 05:18] LABS: CALCIUM 7.4 mg/dL (8.5-10.5)
[2017-01-28 11:02] LABS: HEMATOCRIT 21.2 % (37.0-53.0); HEMOGLOBIN 7.2 g/dL (11.0-16.0)
--- NOTE | 2017-01-28 13:09 | NUR ---
PT AO. VSS ON RA, AFEBRILE. HEAD AND NECK SURGEON, 0.1MG DEMAND WITH 10MIN LOCKOUT. CRESPO AND NG TUBE REMOVED AT 1010. HAS NOT VOIDED YET. THERAPY WORKING WITH. AMBULATES WITH SBA, GAITBELT AND WALKER. TELEMETRY WITH NO CALLS. NPO, CAN HAVE ICE AND HARD CANDY AND GUM. MIDLINE INCISION TO UMBILICUS, DRESSING INTACT. 3 LAP SITES TO LEFT OF THAT, DRESSINGS INTACT. H/H Q12 HR X48HR. CALL 2300 TO HOSPITALIST IF <7.0. REPORT GAVE TO BRAYDON Carvalho RN AT 1300
--- NOTE | 2017-01-28 16:24 | NUR ---
Significant Event: Assumed cares at 1300. Patient alert and oriented. Up to the bathroom to shower this afternoon and up in the recliner. Patient voided x 2 in 125ml and 175 ml amounts. Dilaudid CARAMEL MAKER to demand only with 0.1 mg bolus and a 10 min lockout with a total of 2.1 mg infused with 28 demands and 21 deliveries. Patient rating pain at 3/10. Taking ice chips in orally. Denies nausea. Follow up: Ambulate this evening.
[2017-01-28 23:10] LABS: HEMATOCRIT 20.9 % (37.0-53.0); HEMOGLOBIN 7.1 g/dL (11.0-16.0)
--- NOTE | 2017-01-29 04:50 | NUR ---
Significant Event: Patient continues to rate pain at 3-4. Had 38 demands though, with 22 deliveries for a total dose of 2.16 mg. Low grade temp of 99.6, encourage IS. Temp back down at second assessment to 98.0. Ambulated in hallway several times around the nurses station. No bowel sounds or passing gas. Tele with no calls. Using urinal at bedside with 1150 out total for this shift. HGB was 7.1 and Doctor was notified when he was on the floor. Follow up:Labs in am.
[2017-01-29 05:04] LABS: MCH 30.8 pg (27.0-34.0); MCHC 33.3 gm/dL (32.0-36.5); MCV 92.5 fl (83.0-98.0); MPV 10.2 fl (9.4-12.4); PLATELET COUNT 166 K/uL (150-450); RBC 2.27 M/uL (3.50-5.50); RDW-CV 14.9 % (11.9-14.6); WBC 4.7 K/uL (4.0-11.0)
[2017-01-29 05:27] LABS: ANION GAP 9.9 (10.0-19.0); CALCIUM 7.9 mg/dL (8.5-10.5); CREATININE 1.5 mg/dL (0.6-1.3); MAGNESIUM 2.2 mg/dL (1.8-2.6); POTASSIUM 3.9 mMol/L (3.7-5.1)
[2017-01-29 05:41] LABS: ABSOLUTE NEUTROPHIL CT (ANC) 3.5 K/uL (1.4-9.0); BANDED NEUTROPHIL # 1.2 K/uL (0.0-0.1); BANDED NEUTROPHILS % 26 %; LYMPHOCYTE # 0.8 K/uL (0.8-4.0); LYMPHOCYTE % 18 %; MONOCYTE # 0.3 K/uL (0.0-1.0); SEGMENTED NEUTROPHIL # 2.3 K/uL (1.4-9.0); SEGMENTED NEUTROPHIL % 49 %
[2017-01-29 11:06] LABS: HEMATOCRIT 22.6 % (37.0-53.0); HEMOGLOBIN 7.5 g/dL (11.0-16.0)
--- NOTE | 2017-01-29 16:25 | NUR ---
Significant Event: Patient alert and oriented X3. Up with SBA and gaitbelt. Rates pain of 3-6 thoughout day. On INSERTER pump with Dilaudid 0.1 mg demand only. 11 demands with 7 deliveries for a total of 0.7 mg this shift. IV to both left and right FA-right with INSERTER- good flush with no blood return bilat. Walked halls x5 today. Tele called this AM reporting elevated heart rate in the 110's- patient walking in hallway at that time. Some faint bowel sounds with no BM/gas- patient still NPO with icechips and hard candy allowed. HGB 7.0 at 5 this AM 7.5 at 1100. Family present throughout day. Dr. Cabello to consult and new order for Thorazine 25mg IM Q6 PRN for hiccups. Follow up: Ambulate in halls. H&H at 2300.
--- NOTE | 2017-01-29 17:36 | NUR ---
I have reviewed and agree with charting done by Lisa Crowe, [employer] student nurse for the shift from [id number].
[2017-01-29 23:05] LABS: HEMATOCRIT 20.6 % (37.0-53.0)
[2017-01-29 23:07] LABS: HEMOGLOBIN 6.8 g/dL (11.0-16.0)
[2017-01-30 02:23] LABS: HEMATOCRIT 19.9 % (37.0-53.0); MCH 30.8 pg (27.0-34.0); MCHC 32.7 gm/dL (32.0-36.5); MCV 94.3 fl (83.0-98.0); MPV 9.5 fl (9.4-12.4); PLATELET COUNT 188 K/uL (150-450); RBC 2.11 M/uL (3.50-5.50); WBC 3.3 K/uL (4.0-11.0)
[2017-01-30 02:24] LABS: HEMOGLOBIN 6.5 g/dL (11.0-16.0)
[2017-01-30 02:41] LABS: ANION GAP 10.8 (10.0-19.0); CREATININE 1.3 mg/dL (0.6-1.3); POTASSIUM 3.8 mMol/L (3.7-5.1)
[2017-01-30 04:08] LABS: ABSOLUTE NEUTROPHIL CT (ANC) 2.4 K/uL (1.4-9.0); BANDED NEUTROPHIL # 0.4 K/uL (0.0-0.1); BANDED NEUTROPHILS % 11 %; LYMPHOCYTE # 0.6 K/uL (0.8-4.0); LYMPHOCYTE % 19 %; MONOCYTE # 0.1 K/uL (0.0-1.0); SEGMENTED NEUTROPHIL # 2.1 K/uL (1.4-9.0); SEGMENTED NEUTROPHIL % 62 %
--- NOTE | 2017-01-30 04:16 | NUR ---
Significant Event: Patient's vitals stable, ambulated in the hallway. HGB at 2300 was 6.9 so is receiving one unit of PRBC. Did not use any demand doses on his WALLPAPER INSPECTOR. Rating pain around 3-4. Alert and orientated. Starting to have some bowel sounds, but not passing any gas. Follow up:Continue to monitor.
--- NOTE | 2017-01-30 14:39 | NUR ---
A-SCREENED D/T LOS S/P LAP R)CHOLECTOMY & CYSTOSCOPY W/BILAT STENT PLACEMENTS. PER CHART REVIEW, SUSPECTED COLON CA W/METS HYPOACTIVE BS; NO FLATUS. ABD IS SOFT/NON-DISTENDED. NG REMOVED 01/28 HT: 69 IN. WT: 63.2 KG BMI: 20.5 LABS: NA 144, K+ 3.8, GLU 95, BUN 24, MACHINE GRINDER 1.3, ALB 2.4 MEDS: THORAZINE INJ, MEFOXIN, OFIRMEV, ZOFRAN, DILAUDID, PROTONIX DIET RX: NPO (DAY #4) EST NUTR NEDS: 4890-9323 KCALS (30-35 KCALS/KG) 63-82 GM PROTEIN (1.0-1.3 GM/KG) 1 ML FLUID/KCAL D-AT NUTRITION RISK W/INADEQUATE ORAL INTAKE R/T ALTERED GI AEB NPO, RECENT GI SURGERY. I-NPO AT THIS TIME M/E-GOAL: APPROPRIATE DIET RX WHEN MEDICALLY INDICATED 1)F/U DIET RX, GI, AND POC IN 2-3 DAYS 2)ASSIST NEEDED
--- NOTE | 2017-01-30 15:50 | NUR ---
Significant Event: Patient up at bedside to void. Ambulates in gallegos with standby assist. Patient currently receiving a PRBC's--1 unit. Hemoglobin to be rechecked at 2300 tonight. Patient did have 1 unit on hand braille transcriber, but they wanted patient to have 1 more unit prior to rechecking the blood. SPEECH AND LANGUAGE TUTOR currently off as patient has not needed to use it and was wanting the etco2 monitor off. Encouraged patient to report any pain that is requiring pain medication and we can get something for him. Dr. Sheffield has not been up to see patient yet, but Dr. Fuentes did go in and talk with patient. Patient voiding in 150-250 ml amounts at a time. Will check bladder scan and see what post void residual showing. Follow up: Continue to monitor.
[2017-01-30 23:08] LABS: HEMOGLOBIN 9.2 g/dL (11.0-16.0)
[2017-01-30 23:09] LABS: HEMATOCRIT 27.1 % (37.0-53.0)
--- NOTE | 2017-01-31 03:25 | NUR ---
Significant Event:pt alert and oriented x3.very pleasant with staff and cares. up with 1 assist gb walker. does great with transfers. walks in gallegos with no complicaiton noted. denies pain when asked. AUDIO INSTALLER and iv tylenol dc'd per orders.afebrile, vss. bowel sounds hypoactive. iv to left forearm. LR runnig at 75ml/hr. pt has has adequate urine output during shift. has no complaints of problems with urination since flomax was given on day shift yesterday. pt uses urinal at night. abdominal inscion dressing clean dry intact, continues tohave dark purple bruising to lower abdomen/groin/lower back area. scrotum also noted to be very bruised. pt denies pain to the area, says it is tender with movement. pt has been slightly hypertensive however has imporved. uses call light approp. Follow up:
[2017-01-31 05:15] LABS: HEMATOCRIT 28.4 % (37.0-53.0); HEMOGLOBIN 9.4 g/dL (11.0-16.0)
[2017-01-31 05:24] LABS: ANION GAP 12.7 (10.0-19.0); BLOOD UREA NITROGEN 21 mg/dL (6-24); CALCIUM 8.4 mg/dL (8.5-10.5); CHLORIDE 107 mMol/L (96-110); CO2 28 mMol/L (22-32); CREATININE 1.1 mg/dL (0.6-1.3); ESTIMATED GFR (MDRD EQUATION) > 60; POTASSIUM 3.7 mMol/L (3.7-5.1); SODIUM 144 mMol/L (135-145)
--- NOTE | 2017-01-31 19:15 | NUR ---
Significant Event: UP IN ROOM AND OUT IN KIMBALL. DRSG TO ABD FROM, NUMEROUS INCISIONS NOTED, STRIE STRIPS INTACT. NO DRAINAGE NOTED, HAS ALOT ECCHYMOSIS ON ABD AND GROIN. HAD LOPRESSER 5 MG IV FOR ELEVATED BP THIS AFTERNOON. VOIDING WELL PER URINAL.. Follow up:
--- NOTE | 2017-01-31 23:26 | NUR ---
Significant Event: walked in halls, active bowel sounds, steristrips intact to incisions, lower abdomen and penis remain ecchymotic, using urinal at bedside, patient denies pain Follow up:
--- NOTE | 2017-02-01 03:52 | NUR ---
Significant Event: Pt alert and Oriented x3. cooperative with cares. SBA. ambulated in halls multiple times last night. pt stated " i passed gas before dinner, but havent since". BS hypoactive. CL diet. LR @ 75 ML/HR. DW. no difficulties voiding. tachy with PAC while going to bathroom around 0300 MD notified. VSS. Denies and pain or wanting any pain medication. Denies SOB or any neausea. pt in good spirits. slept on and off throughout the night. Follow up:monitor BSand encourage walking
--- NOTE | 2017-02-01 09:01 | NUR ---
A-NUTRITION F/U HYPOACTIVE BS; (+)FLATUS; NO BM SINCE 01/26. NO C/O NAUSEA. AMBULATING 01/31 LABS REVIEWED NO NEW MEDS/CHANGES SINCE LAST F/U DIET RX: FULL LIQUIDS. PO INTAKE 50-100% EST NUTR NEEDS: 3071-0955 KCALS AND 63-82 GM PROTEIN D-AT NUTRITION RISK W/INADEQUATE NUTRIENT INTAKE R/T ALTERED GI FXN AEB RECENT GI SURGERY, NPO STATUS, LIQUID DIET. I-START ENSURE ENLIVE BID M/E-GOAL: PO INTAKE >/=50% FOR DURATION OF ADMIT 1)F/U DIET RX, PO INTAKE, SUPPLEMENT, GI, AND POC IN 2-4 DAYS 2)ASSIST NEEDED
[2017-02-01 10:36] LABS: HEMATOCRIT 28.3 % (37.0-53.0); HEMOGLOBIN 9.4 g/dL (11.0-16.0)
[2017-02-01] MEDS ORDERED: TYLENOL325 MG PO (11:22)
[2017-02-01] MEDS ORDERED: PROTONIX40 MG PO (11:23)
[2017-02-01] MEDS ORDERED: FLOMAX0.4 MG PO (11:24)
--- NOTE | 2017-02-01 14:33 | NUR ---
DISCHARGE: Pt. and were explained discharge instuctions, educated on new medications: tylenol, protonix, and flomax. Educated on BPH, colon resection, and ureteral stents. Verbalized understanding, no questions or concerns. Knows to call Dr. Cabello's office on day before appointment to verify lab results are back. Will have genetic consult, they will call him to schedule appointment. Left with all belongings and prescriptions. IV removed by primary, tele removed. Patient returned home with and family. Taken by wheelchair to front door and driven home to [place], [place] by family.
--- NOTE | 2017-02-06 11:43 | NUR ---
Post discharge follow up call made to patient. Patient states he is doing well. Had follow up appointment with Dr. Becerril 02/03 and everything checked out ok. His Hgb is good. He is aware of all remaining follow up appointments. Is knowledgable about new medications. No difficulty urinating.
== END 2017-02-01 15:15 | disposition disaster alternative care site (69) | DRG 330 ==
LOC: GMSU 14:16
PROVIDERS: Hospitalist; Internal Medicine; Nurse Practitioner Family; Surgery; ADMIT Internal Medicine
PROC: 0DBE4ZZ Excision of Large Intestine, Percutaneous Endoscopic Approach (ICD-10-PCS; principal; 2017-01-26)
PROC: BT1F1ZZ Fluoroscopy of Left Kidney, Ureter and Bladder using Low Osmolar Contrast (ICD-10-PCS; principal; 2017-01-26)
PROC: 0T788DZ Dilation of Bilateral Ureters with Intraluminal Device, Via Natural or Artificial Opening Endoscopic (ICD-10-PCS; principal; 2017-01-26)
PROC: 0W9G4ZZ Drainage of Peritoneal Cavity, Percutaneous Endoscopic Approach (ICD-10-PCS; 2017-01-27)
DX: C18.9 Malignant neoplasm of colon, unspecified (principal); K56.69 Other intestinal obstruction; I95.9 Hypotension, unspecified; C79.9 Secondary malignant neoplasm of unspecified site; N13.30 Unspecified hydronephrosis; N18.4 Chronic kidney disease, stage 4 (severe); K86.2 Cyst of pancreas; N17.9 Acute kidney failure, unspecified; D64.9 Anemia, unspecified; D62 Acute posthemorrhagic anemia; K91.840 Postprocedural hemorrhage of a digestive system organ or structure following a digestive system procedure; N13.4 Hydroureter; D49.0 Neoplasm of unspecified behavior of digestive system; E78.5 Hyperlipidemia, unspecified; K63.9 Disease of intestine, unspecified; K76.9 Liver disease, unspecified; N32.81 Overactive bladder; N40.0 Benign prostatic hyperplasia without lower urinary tract symptoms; R59.0 Localized enlarged lymph nodes; Z86.718 Personal history of other venous thrombosis and embolism
CPT/HCPCS: C1769; C2617; C9113; J0131; J0694; J1100; J1170; J2405; J2765; J3010; J7030; J7040; J7050; J7120; P9016

== ENCOUNTER → 2017-02-27 | Day surgery (SDC) | payer MEDICARE, OTHER ==
[~2017-02-27] VITALS: Ht 177.8 cm; Wt 61.4 kg
[~2017-02-27] MED LIST: ADVIL200 MG PO; ALEVE220 M1 PO; FISH OIL 1,001000 MG PO; FLOMAX0.4 MG PO; IRON65 PO; PROTONIX40 MG PO; RED YEAST RICE600 MG PO; THERAGRAN-M1 TAB PO; TYLENOL325 MG PO
--- NOTE | ~2017-02-27 | OR ---
PATIENT'S NAME: ARSH WIN [facility] AGE: 76 Y [address] ROOM: [place] [address] LOCATION: [facility] [place] ADMIT DATE: 02/27/2017 OR/Procedure Report DISCHARGE DATE: FAMILY PHYSICIAN: JUAN MORALES ATTENDING PHYSICIAN: Perry Geronimo SURGEON: Perry Geronimo MD STAINED GLASS ARTIST: DATE OF PROCEDURE: 02/27/2017 PREOPERATIVE DIAGNOSES: 1. Colon cancer. 2. Need for chronic IV access. POSTOPERATIVE DIAGNOSES: 1. Colon cancer. 2. Need for chronic IV access. PROCEDURE: Insertion of a right subclavian vein based low-profile PowerPort. ANESTHESIA: IV sedation with 9 mL of 1% Xylocaine. SPECIMEN: None. INDICATION: The patient is a 76-year-old gentleman status post right hemicolectomy for colon cancer. Under the direction of Dr. Cabello, he was to undergo chemotherapy, and I was asked to place a port for chronic IV access. DESCRIPTION OF PROCEDURE: After informed consent, the patient was taken to the operating room, and after IV sedation, the anterior chest and neck were prepped and draped into a sterile field. A time-out performed; we confirmed the patient, planned procedure, and administration of preop antibiotics. The patient was placed in a Trendelenburg position. Local anesthetic infiltrated beneath the right clavicle and access to the right subclavian vein was accomplished without difficulty. We placed a guidewire. It was initially up in the internal jugular venous system, and after manipulation under fluoro, we positioned it down into the superior vena cava. Next, we injected local anesthetic on top of the anterior right chest. We made a subcutaneous pocket on top of the pectoralis fascia. Next, over the wire, we placed introducer and sheath, removed the wire and introducer. Through the sheathing, we placed a tubing into the superior vena cava and positioned the tip above the right atrium. We split the sheath to remove it. We tunneled the tubing down to the port where it was connected. We secured it down with 3-0 silks to the fascia. Subcutaneous tissue was closed with 3-0 Vicryl and skin was closed with subcuticular 4-0 Vicryl. We accessed the port. We had return of venous blood. It was flushed with saline and hep-locked. Steri-Strips and sterile PATIENT'S NAME: ARSH WIN [facility] AGE: 76 Y [address] ROOM: [place] [address] LOCATION: [facility] [place] ADMIT DATE: 02/27/2017 OR/Procedure Report DISCHARGE DATE: FAMILY PHYSICIAN: JUAN MORALES ATTENDING PHYSICIAN: Perry Geronimo dressings applied. The patient tolerated the procedure well and transferred to the recovery room in stable condition. MD NEGRO STEVENS/modl /[id number] d: 02/27/1716 t: 03/15/17 1609, OPERATIVE SUMMARY
== END | disposition disaster alternative care site (69) ==
LOC: GPOC 02-22 13:00 → GSDC 05:55
PROC: 05H533Z Insertion of Infusion Device into Right Subclavian Vein, Percutaneous Approach (ICD-10-PCS; principal; 2017-02-27)
PROC: B516ZZA Fluoroscopy of Right Subclavian Vein, Guidance (ICD-10-PCS; 2017-02-27)
DX: C18.0 Malignant neoplasm of cecum (principal); M19.012 Primary osteoarthritis, left shoulder; M19.011 Primary osteoarthritis, right shoulder; E78.5 Hyperlipidemia, unspecified; M19.042 Primary osteoarthritis, left hand; M19.041 Primary osteoarthritis, right hand; M47.816 Spondylosis without myelopathy or radiculopathy, lumbar region; C78.7 Secondary malignant neoplasm of liver and intrahepatic bile duct; C78.6 Secondary malignant neoplasm of retroperitoneum and peritoneum; Z87.891 Personal history of nicotine dependence; Z98.890 Other specified postprocedural states; Z79.899 Other long term (current) drug therapy
CPT/HCPCS: C1788; J0690; J1642; J2001; J7030